=== PATIENT | female | born 1985 | race African-American/Black ===

== ENCOUNTER 2020-09-22 20:30 | Emergency (ER) | payer OTHER ==
[~2020-09-22] VITALS: Ht 157.5 cm; Wt 74.8 kg
[2020-09-23] MEDS ORDERED: PHENERGAN25 MG PO (05:41)
[2020-09-23] MEDS ORDERED: ACETAMINOPHEN650 M2 PO (05:41)
[2020-09-23] MEDS ORDERED: BENADRYL25 MG PO (05:41)
[2020-09-27] MEDS ORDERED: ACETAMINOPHEN650 M2 (15:38)
== END 2020-09-23 06:05 | disposition home or self-care (01) ==
LOC: ER 20:30
DX: H02.89 Other specified disorders of eyelid (principal)